=== PATIENT | female | born 1995 | race Caucasian/White ===

== ENCOUNTER 2018-03-09 10:03 | Emergency (ER) | payer OTHER ==
--- NOTE | 2018-03-09 11:03 | ED Physician Documentation ---
PD HPI GI BLEED - Stated complaint Stated Complaint: BLOOD IN STOOL - Chief complaint Chief Complaint: Abd Pain - History obtained from History obtained from: Patient, Family - History of Present Illness Timing - onset: Enter time (0800), Today Timing - duration: Minutes Timing - details: Abrupt onset, Now resolved Associated symptoms: BRBPR. No: Vomiting, Coffee ground emesis, Black/tarry stool Contributing factors: No: Sick contact, Bad food, Recent antibiotics, Alcohol use, NSAID use Similar symptoms before: Has not had sx before Recently seen: Not recently seen - Additional information Additional information: 22-year-old female had a bowel movement this morning at 8 AM and she noted blood streaked on the outside of the stool and at the break. She wiped and did not have blood on the tissue. She denies any issue with hemorrhoids. She has been constipated recently. She has some nausea has not had any vomiting. She has not used aspirin ibuprofen or Aleve in some time and she last had alcohol about 3 days ago. Review of Systems Constitutional: denies: Fever, Chills Respiratory: denies: Cough GI: reports: Bloody / black stool. 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: None : None HEENT: None Psych: None Musculoskeletal: None Derm: None - Past Surgical History Past Surgical History: No - Allergies Allergies/Adverse Reactions: Allergies Allergy/AdvReac Type Severity Reaction Status Date / Time No Known Drug Allergies Allergy Verified 11/06/15 01:27 - Social History Does the pt smoke?: No Smoking Status: Never smoker Does the pt drink ETOH?: No Does the pt have substance abuse?: No - Immunizations Immunizations are current?: Yes - POLST Patient has POLST: No PD ED PE NORMAL - Vitals Vital signs reviewed: Yes (hypertension) - General General: No acute distress, Well developed/nourished - HEENT HEENT: Atraumatic, PERRL - Respiratory Respiratory: No respiratory distress - Rectal Rectal: Other (There are no hemmorrhoids present and no blood in the vault. There is stool present it is brown and quiac negative ) - Back Back: No CVA TTP, No spinal TTP - Derm Derm: Normal color, Warm and dry, No rash - Extremities Extremities: No deformity, No edema - Psych Psych: Normal mood, Normal affect Results - Vitals Vitals: Vital Signs - 24 hr 03/09/18 03/09/18 03/09/18 10:14 10:18 12:39 Temperature 36.6 C Heart Rate 82 83 77 Respiratory 16 16 20 Rate Blood Pressure 131/100 H 122/84 H 114/75 O2 Saturation 98 97 100 Oxygen O2 Source Room air - Labs Labs: Laboratory Tests 03/09/18 03/09/18 03/09/18 10:35 10:35 11:15 WBC 6.3 RBC 4.61 Hgb 14.5 Hct 42.4 MCV 91.9 MCH 31.5 H MCHC 34.3 RDW 12.9 Plt Count 225 MPV 8.2 Neut # (Auto) 4.1 Lymph # (Auto) 1.7 Bates # (Auto) 0.4 Eos # (Auto) 0.1 Baso # (Auto) 0.0 Absolute Nucleated RBC 0.00 Nucleated RBC % 0.0 Sodium 137 Potassium 3.4 L Chloride 101 Carbon Dioxide 25 Anion Gap 11.0 BUN 9 Creatinine 0.6 Estimated GFR (MDRD) 123 Glucose 110 H Calcium 9.0 Total Bilirubin 0.9 AST 23 ALT 16 Alkaline Phosphatase 52 Total Protein 7.7 Albumin 4.3 Globulin 3.4 Albumin/Globulin Ratio 1.3 Lipase 26 Blood Type A POSITIVE Antibody Screen NEGATIVE PD MEDICAL DECISION MAKING - ED course Complexity details: reviewed results, re-evaluated patient, considered differential, d/w patient, d/w family ED course: 22 y/o female with guiac negative stool has had blood streaked on stool this morning and she has been constipated. Her blood counts are normal this morning and she is reassured that this is likely due to hard stool and should not persist. - Sepsis Event Vital Signs: Vital Signs - 24 hr 03/09/18 03/09/18 03/09/18 10:14 10:18 12:39 Temperature 36.6 C Heart Rate 82 83 77 Respiratory 16 16 20 Rate Blood Pressure 131/100 H 122/84 H 114/75 O2 Saturation 98 97 100 Oxygen O2 Source Room air Departure - Departure Disposition: 01 Home, Self Care Clinical Impression: Rectal bleed Condition: Stable Instructions: ED Hematochezia Stable Follow-Up: ELOINA Munoz [Provider Group] Discharge Date/Time: 03/09/18 12:41
[2018-03-09 11:05] LABS: BASOPHILS % (AUTO) 0.1 %; EOSINOPHILS # (AUTO) 0.1 10^3/uL (0.0-0.7); EOSINOPHILS % (AUTO) 1.1 %; HGB - HEMOGLOBIN 14.5 g/dL (12.0-16.0); LYMPHOCYTES # (AUTO) 1.7 10^3/uL (1.5-3.5); LYMPHOCYTES % (AUTO) 27.7 %; MEAN CORPUSCULAR HEMOGLOBIN 31.5 pg (27.0-31.0); MEAN CORPUSCULAR HGB CONC 34.3 g/dL (32.0-36.0); MEAN CORPUSCULAR VOLUME 91.9 fL (81.0-99.0); MEAN PLATELET VOLUME 8.2 fL (7.9-10.8); MONOCYTES # (AUTO) 0.4 10^3/uL (0.0-1.0); MONOCYTES % (AUTO) 5.8 %; NEUTROPHILS # (AUTO) 4.1 10^3/uL (1.5-6.6); NEUTROPHILS % (AUTO) 65.3 %; PLT - PLATELET COUNT 225 10^3/uL (130-450); RED BLOOD COUNT 4.61 10^6/uL (4.20-5.40); RED CELL DISTRIBUTION WIDTH 12.9 % (12.0-15.0); WHITE BLOOD COUNT 6.3 x10^3/uL (4.8-10.8)
[2018-03-09 11:17] LABS: ALBUMIN 4.3 g/dL (3.2-5.5); ALBUMIN/GLOBULIN RATIO 1.3 (1.0-2.2); BILIRUBIN,TOTAL 0.9 mg/dL (0.2-1.0); CREATININE 0.6 mg/dL (0.4-1.0); TOTAL PROTEIN 7.7 g/dL (6.7-8.2)
[2018-03-09 12:41] VITALS: BP 114/75
== END 2018-03-09 12:41 | disposition home or self-care (01) ==
LOC: ED 10:03
DX: K92.1 Melena (principal)
CPT/HCPCS: 36415; 80053; 83690; 85025; 86850; 86900; 86901; 99283

== ENCOUNTER 2018-08-12 10:23 | Emergency (ER) | payer OTHER ==
[2018-08-12 10:30] VITALS: BP 116/77
--- NOTE | 2018-08-12 10:42 | ED Physician Documentation ---
PD HPI UPPER EXT INJURY - Stated complaint Stated Complaint: THUMB LAC - Chief complaint Chief Complaint: Laceration - History of Present Illness Location: Right, Finger Type of injury: Laceration Timing - onset: Yesterday Timing - details: Abrupt onset Severity Comments: mild - Additonal information Additional information: 23-year-old female presents emergency department for evaluation of a right thumb injury. The patient shaved off the skin on the volar portion of her right thumb. The patient applied a [id number] quick clot which is helped control the bleeding. No other area of injury. No loss of function or sensation. Review of Systems Constitutional: denies: Fever, Chills Eyes: denies: Discharge Ears: denies: Ear pain Nose: denies: Congestion Throat: denies: Sore throat Respiratory: denies: Cough : denies: Dysuria Skin: reports: Lesions, Laceration (s) Musculoskeletal: denies: Back pain PD PAST MEDICAL HISTORY - Past Medical History Cardiovascular: None Respiratory: None Endocrine/Autoimmune: None GI: None [employer]: None : None HEENT: None Psych: None Musculoskeletal: None Derm: None - Past Surgical History Past Surgical History: No - Present Medications Home Medications: Ambulatory Orders Medication Instructions Recorded Confirmed Bupropion HCl [Bupropion HCl Sr] 150 mg PO DAILY 08/12/18 08/12/18 - Allergies Allergies/Adverse Reactions: Allergies Allergy/AdvReac Type Severity Reaction Status Date / Time No Known Drug Allergies Allergy Verified 08/12/18 10:30 - Social History Does the pt smoke?: No Smoking Status: Never smoker Does the pt drink ETOH?: No Does the pt have substance abuse?: No - Immunizations Immunizations are current?: Yes - POLST Patient has POLST: No PD ED PE NORMAL - General General: Alert and oriented X 3, No acute distress - HEENT HEENT: Atraumatic, PERRL, EOMI, Ears normal - Derm Derm: Warm and dry - Neuro Neuro: Alert and oriented X 3, Normal speech - Psych Psych: Normal affect PD ED PE EXPANDED - Extremities HIMANSHU UE/Hands Visual: 1 - laceration (There is a small area of skin avulsion on the distal volar thumb. There is currently no active bleeding. No foreign body. The patient has full active range of motion in extension and flexion and no clinical evidence of a ligamentous or tendon injury. The patient has a normal radial pulse and normal cap refill.) Results - Vitals Vitals: Vital Signs - 24 hr 08/12/18 10:28 Temperature 36 C L Heart Rate 77 Respiratory 18 Rate Blood Pressure 116/77 O2 Saturation 98 Oxygen O2 Source Room air PD MEDICAL DECISION MAKING - ED course ED course: The patient avulsed the skin on her thumb, there is no area that would benefit from laceration. This will have to heal via secondary intention. I discussed the natural course of this healing process with the patient. I discussed warning signs for infection and advised to follow-up with primary care. Advised returning to the emergency department for any worsening or any concerns. Departure - Departure Disposition: 01 Home, Self Care Clinical Impression: Thumb laceration Qualifiers: Encounter type: initial encounter Damage to nail status: without damage Foreign body presence: without foreign body Laterality: unspecified laterality Qualified Code(s): S61.019A - Laceration without foreign body of unspecified thumb without damage to nail, initial encounter Condition: Good Instructions: ED Laceration All, ED Avulsion Dermal Follow-Up: ELOINA Munoz [Provider Group] - Within 1 week Comments: Please return for any worsening or any concerns
[2018-08-12] MEDS ORDERED: BACITRACIN OINT TOP ONE (10:44)
== END 2018-08-12 10:51 | disposition home or self-care (01) ==
LOC: ED 10:23
DX: S61.011A Laceration without foreign body of right thumb without damage to nail, initial encounter (principal); W27.4XXA Contact with kitchen utensil, initial encounter
CPT/HCPCS: 99282; 99283; A9270